=== PATIENT | female | born 1995 | race African-American/Black ===

== ENCOUNTER 2018-02-21 00:58 | Inpatient (IN) ==
[2018-02-21 01:59] LABS: Apearance,Urine CLEAR (Clear); Bilirubin,Urine Negative (Negative); Blood, Urine Negative (Negative); Glucose,Urine (UA) Negative (Negative); Ketones,Urine 5 mg/dL (Negative); Mucus,Urine Occasional /LPF (Occasional); Nitrite,Urine Negative (Negative); Protein,Urine Negative; RBC,Urine 6 /HPF (0-4); Squamous Epithelial Cell,Urine Occasional /HPF (0-10); Urine Color Yellow (Yellow); Urine Specific Gravity 1.016 (1.001-1.035); WBC,Urine 1 /HPF (0-6)
[2018-02-21] MEDS ORDERED: MEPERIDINE 50 MG/1 ML VIAL IV ONE (02:19)
[2018-02-21] MEDS ORDERED: ONDANSETRON 4 MG/2 ML VIAL IV ONE (02:20)
[2018-02-21] MEDS ORDERED: LACTATED RINGERS 1,000 ML IV SCH (02:30)
[2018-02-21] MEDS: MEPERIDINE 50 MG/1 ML VIAL IV PRN ×2 (05:43→08:59)
[2018-02-21 05:51] LABS: Basophils % 0.1 % (0.0-0.8); Eosinophils % 0.1 % (0.00-10.9); Hemoglobin 10.6 GM/DL (12.0-16.0); Immature Granulocytes % 0.1 %; Immature Granulocytes Absolute 0.01 #; Lymphocytes # 1.5 10*3/uL (1.4-4.0); Lymphocytes % 21.4 % (21.3-54.2); Mean Corpuscular HGB Conc 33.1 GM/DL (32-36); Mean Corpuscular Hemoglobin 31 PG (27-34); Mean Platelet Volume 10.6 FL (9.6-12.0); Monocytes # 0.8 10*3/uL (0.11-0.8); Monocytes % 10.6 % (1.7-12.7); Neutrophils # 4.9 10*3/uL (1.4-7.4); Neutrophils % 67.7 % (38.7-73.9); Platelet Count 154 T/CUMM (130-400); Red Blood Count 3.44 MC/CUMM (3.8-5.5); Red Cell Distribution Width 12.5 % (9.3-17.3); White Blood Count 7.2 T/CUMM (4-12)
[2018-02-21 06:19] LABS: Alanine Aminotransferase 12 U/L (13-56); Albumin 2.3 G/DL (3.4-5.0); Alkaline Phosphatase 131 U/L (45-117); Aspartate Amino Transferase 11 U/L (0-37); Bilirubin,Total < 0.39 MG/DL (0.2-1.0); Blood Urea Nitrogen 6 MG/DL (7-18); Calcium 8.4 MG/DL (8.5-10.1); Glucose 74 MG/DL (74-106); Osmolality,Calculated 269.8 MOS/KG (273-304); Sodium 137 MMOL/L (136-145); Total Protein 6.5 G/DL (6.4-8.3)
[2018-02-21] MEDS ORDERED: OXYTOCIN/LR 20 UNIT/1,000 ML BAG IV SCH (07:30)
[2018-02-21] MEDS ORDERED: miSOPROStol 200 MCG TABLET ONE (08:52)
[2018-02-21] MEDS ORDERED: LIDOCAINE 1% 50 ML VIAL ONE (08:52)
[2018-02-21] MEDS ORDERED: HYDROCORTISONE 2.5% RECTAL CREAM 30 GM TUBE TOP PRN (10:39)
[2018-02-21] MEDS ORDERED: OXYTOCIN/LR 20 UNIT/1,000 ML BAG IV ONE (10:39)
[2018-02-21] MEDS ORDERED: RHO(D) IMMUNE GLOBULIN 300 MCG SYRINGE IM ONE (10:39)
[2018-02-21] MEDS ORDERED: MEASLES/MUMPS/RUBELLA VACCINE 0.5 ML VIAL SUBCUT ONE (10:39)
[2018-02-21] MEDS ORDERED: LANOLIN 50% CREAM 0.3 OZ TUBE TOP PRN (10:39)
[2018-02-21] MEDS ORDERED: BENZOCAINE 20%/MENTHOL 0.5% SPRAY 56 GM CAN TOP PRN (10:39)
[2018-02-21] MEDS ORDERED: WITCH HAZEL PADS 100/JAR TOP PRN (10:39)
[2018-02-21] MEDS ORDERED: BISACODYL 10 MG SUPP RECTAL PRN (10:39)
[2018-02-21] MEDS ORDERED: DIPH/TET/ACEL PERT BOOSTER VACCINE 0.5 ML VIAL IM ONE (10:39)
[2018-02-21] MEDS ORDERED: ACETAMINOPHEN 325 MG TABLET PO PRN (10:39)
[2018-02-21] MEDS ORDERED: ONDANSETRON 4 MG/2 ML VIAL IV PRN (10:39)
[2018-02-21 10:40] LABS: Cord Venous Blood HCO3 19.4 MMOL/L; Cord Venous Blood PCO2 54.1 MMHG; Cord Venous Blood PO2 26.4
[2018-02-21] MEDS: IBUPROFEN 800 MG TABLET PO PRN ×2 (11:00→16:45)
[2018-02-21] MEDS: DOCUSATE SODIUM 100 MG CAPSULE PO SCH (20:09)
[2018-02-21] MEDS: oxyCODONE/ACETAMINOPHEN 5-325 MG TABLET PO PRN (22:53)
[2018-02-22 05:14] LABS: Basophils % 0.1 % (0.0-0.8); Eosinophils % 0.1 % (0.00-10.9); Hematocrit 30.7 VOL% (35.7-47.0); Immature Granulocytes % 0.4 %; Immature Granulocytes Absolute 0.05 #; Lymphocytes # 1.9 10*3/uL (1.4-4.0); Lymphocytes % 13.6 % (21.3-54.2); Mean Corpuscular HGB Conc 32.6 GM/DL (32-36); Mean Corpuscular Hemoglobin 30 PG (27-34); Mean Corpuscular Volume 92.7 FL (87-102); Mean Platelet Volume 10.4 FL (9.6-12.0); Monocytes # 0.9 10*3/uL (0.11-0.8); Monocytes % 6.8 % (1.7-12.7); Platelet Count 146 T/CUMM (130-400); Red Blood Count 3.31 MC/CUMM (3.8-5.5); Red Cell Distribution Width 12.5 % (9.3-17.3); White Blood Count 13.9 T/CUMM (4-12)
[2018-02-22] MEDS: DOCUSATE SODIUM 100 MG CAPSULE PO SCH ×2 (08:20→20:19)
[2018-02-22] MEDS: oxyCODONE/ACETAMINOPHEN 5-325 MG TABLET PO PRN ×2 (09:07→16:44)
[2018-02-23] MEDS: IBUPROFEN 800 MG TABLET PO PRN (05:02)
[2018-02-23] MEDS: oxyCODONE/ACETAMINOPHEN 5-325 MG TABLET PO PRN (05:03)
[2018-02-23 07:16] VITALS: BP 119/54
[2018-02-23] MEDS: DOCUSATE SODIUM 100 MG CAPSULE PO SCH (08:21)
== END 2018-02-23 12:00 | disposition home or self-care (01) | DRG 560 ==
LOC: N.LDOUT 00:58 → N.LD 00:59 → N.OB 19:52
PROVIDERS: ADMIT Obstetrics & Gynecology; ATTEND Obstetrics & Gynecology